=== PATIENT | male | born 1990 | race Caucasian/White ===

== ENCOUNTER 2018-09-08 23:22 | Emergency (ER) | payer SELFPAY ==
[~2018-09-08] VITALS: Ht 165.1 cm; Wt 58.0 kg
[2018-09-08 23:26] VITALS: BP 125/77; PULSE 77; RESP 16; Ht 165.1 cm; Wt 58.0 kg
[2018-09-08] MEDS ORDERED: KETOROLAC 30 MG INJ IM STA (23:58)
[2018-09-09] MEDS ORDERED: ACET500C5 PO (00:13)
[2018-09-09] MEDS ORDERED: TRAM50TA2 PO (00:13)
[2018-09-09] MEDS ORDERED: IBUP-1542 PO (00:13)
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
== END 2018-09-09 00:59 | disposition home or self-care (01) ==
LOC: FTE 23:22
DX: J34.89 Other specified disorders of nose and nasal sinuses (principal); R22.0 Localized swelling, mass and lump, head
CPT/HCPCS: 70140; 96372; 99284; J1885